=== PATIENT | female | born 1970 | race Two or more races ===

== ENCOUNTER 2019-05-28 07:03 | Day surgery (SDC) | payer OTHER ==
[~2019-05-28 07:03] MED LIST: ATIVAN1 M1 PO; ATIVAN2 M1 PO; COZAAR100 MG PO; HUMULIN R500 UNIT/2; PROVENTIL HFA6.7 GM IH; WELLBUTRIN XL300 MG PO; [UNRECOGNIZED DRUG - OTHER]; [UNRECOGNIZED DRUG - OTHER] PO
== END 2019-05-28 14:00 | disposition home or self-care (01) ==
LOC: CIR.AMB 07:03
DX: R15.9 Full incontinence of feces (principal)
CPT/HCPCS: 64590; C1767

== ENCOUNTER 2024-07-07 05:19 | Day surgery (SDC) | payer OTHER ==
[2024-07-02 12:06] LABS: HEMATOCRIT 39.5 % (36.0-45.00); HEMOGLOBIN 13.1 g/dL (12.0-15.00); MEAN CELL VOLUME 84.6 fL (80.00-100.00); MEAN CORPUSCULAR HGB CONC 33.1 g/dl (32.0-36.0); PLATELET COUNT 304 K/uL (150-450); RED BLOOD COUNT 4.67 M/uL (4.00-6.00); RED CELL DISTRIBUTION WIDTH 14.9 % (11.5-14.5)
[2024-07-02 12:30] LABS: INR < 0.93; PARTIAL THROMBOPLASTIN TIME 26.8 SECONDS (22.0-34.0)
[2024-07-02 12:32] LABS: PROTHROMBIN TIME 10.2 SECONDS (9.0-11.5)
[2024-07-02 12:39] LABS: PH,URINE 6.5 (5.0-8.0); URINE APPEARANCE Cloudy; URINE BILIRRUBIN Negative (NEGATIVE); URINE BLOOD Negative; URINE COLOR Yellow; URINE GLUCOSE Negative (NEGATIVE); URINE KETONE Trace (NEGATIVE); URINE LEUKOCYTE Large; URINE NITRATE Positive; URINE PROTEIN Negative (NEGATIVE); URINE UROBILINOGEN 0.2 E.U./dl
[2024-07-02 12:40] LABS: URINE BACTERIA 3711.4 uL (0.0-1933); URINE EPITHELIAL CELLS 24.2 uL (0.0-38.8); URINE RBC 4.1 uL (0.0-20.8); URINE WBC 663.1 uL (0.0-23.2)
[2024-07-02 12:49] LABS: ALBUMIN 3.6 gm/dL (3.4-5.0); BILIRUBIN TOTAL 0.45 mg/dL (0.3-1.2); CALCIUM 9.8 mg/dL (8.5-10.1); CREATININE SERUM 0.68 mg/dL (0.55-1.02); GFR 89.83; GLOBULINA 3.6 G/DL (2.4-3.5); POTASSIUM 3.73 mEq/L (3.5-5.1); TOTAL PROTEIN 7.2 gm/dL (6.4-8.2)
[~2024-07-07 05:19] MED LIST changes: +ADULT LOW DOSE81 M1 PO; +AMLODIPINE-OLM1 EAC2 PO; +CLONAZEPAM1 MG PO; +CLONAZEPAM2 MG PO; +HUMALOG100 UNIT/1 SUBCUTANEO; +JARDIANCE25 MG PO; +LITHIUM CARBON300 MG PO; +METRONIDAZOLE/SODIUM CHLORIDE 500 MG/100 ML PIGGYBACK IV SCH; +PEPCID AC20 MG PO; +QUETIAPINE FUM400 M1 PO; +TEMAZEPAM15 MG PO; +TRESIBA100 UNIT/1; +levoFLOXacin IN DEXTROSE 5 % 5 MG/ML PIGGYBAG IV SCH
[2024-07-07] MEDS ORDERED: CHLORHEXIDINE GLUCONATE 120 ML BOTTLE TOP ONE (06:59)
[2024-07-07] MEDS ORDERED: BUPIVACAINE HCL/MPF 0.5% 30ML VIAL ONE (06:59)
[2024-07-07] MEDS ORDERED: LIDOCAINE HCL 1%/EPINEPHRINE 20ML VIAL IJ ONE (06:59)
[2024-07-07] MEDS ORDERED: INSULIN REGULAR, HUMAN 1,000 UNIT/10 ML UNITS IV ONE (08:15)
== END 2024-07-07 13:45 | disposition home or self-care (01) ==
LOC: CIR.AMB 05:19
PROVIDERS: ATTEND Colon & Rectal Surgery
DX: R15.9 Full incontinence of feces (principal); K92.2 Gastrointestinal hemorrhage, unspecified
CPT/HCPCS: 64590; 95972; C1767